=== PATIENT | female | born 1985 | race Caucasian/White ===

== ENCOUNTER → 2016-09-02 | Outpatient (REF) | payer OTHER ==
[2016-09-03 09:16] LABS: CARCINOEMBRYONIC ANTIGEN < 0.5 NG/ML (<2.5)
== END ==
LOC: M LABDRAW1 16:41
PROVIDERS: ATTEND Surgery
DX: D37.6 Neoplasm of uncertain behavior of liver, gallbladder and bile ducts (principal)

== ENCOUNTER → 2016-10-21 | Outpatient (CLI) | payer OTHER ==
--- NOTE | 2016-10-21 12:16 | REP ---
MRI abdomen without and with IV gadolinium: History: Multiple hepatic lesions. Comparison MRI study June 17, 2016. Comparison sonography is from June 07, [address] study is from June 18, 2016. Gadolinium enhancement dose: 20 mL of intravenous ProHance is administered. MRI technique: Axial and coronal imaging planes were utilized. T1 and T2-weighted sequences include true FISP, spin-echo, fast spin echo, in and out of phase, and dynamically and sequentially acquired T1 2-D gradient echo fat sat images postcontrast. MRI findings: There are multiple hypervascular liver lesions noted scattered in the right and left lobes of the liver. There are 11 identifiable nodules ranging in size from less than a centimeter to 6.2 cm in greatest diameter. These have become more numerous than on the prior study when no more than 5 or 6 were identifiable. They show subtle T2 hyperintensity, no evidence of intralesional fat on in and out of phase images, and hypervascular enhancement with washout kinetics. No splenic, pancreatic, renal, or adrenal lesion is seen. Gallbladder is unremarkable. No pleural effusion or ascites is seen. No biliary ductal dilation or pancreatic ductal dilation is observed. Impression: Progression in size and number of multiple hepatic lesions. Malignancy must be suspected. Ultrasound-guided needle biopsy should be considered. Signed by Clifford Henry MD 10/21/2016 06:25 P
== END ==
LOC: M RAD 09:09
PROVIDERS: ATTEND Surgery
DX: D37.6 Neoplasm of uncertain behavior of liver, gallbladder and bile ducts (principal)

== ENCOUNTER → 2016-10-25 | Outpatient (CLI) | payer OTHER ==
[2016-10-25 12:21] LABS: INR 0.86
== END ==
LOC: M LAB 11:14
PROVIDERS: ATTEND Surgery
DX: D37.6 Neoplasm of uncertain behavior of liver, gallbladder and bile ducts (principal)

== ENCOUNTER → 2016-11-01 | Outpatient (CLI) | payer OTHER ==
[~2016-11-01] MED LIST: ACETAMINOPHEN 325 MG TAB As Ordered ONE; LIDOCAINE 1% MDV 20ML VIAL As Ordered ONE
--- NOTE | 2016-11-01 17:37 | REP ---
ULTRASOUND GUIDED LIVER BIOPSY: The procedure was performed under the direct supervision of Dr. Strong. The patient has a history of multiple hepatic lesions seen on a previous MRI dated 10/21/2016. The risks and benefits of the procedure were explained to the patient and informed consent was obtained. A lesion in the right lobe of the liver was localized using ultrasound guidance. The skin was prepped and draped in a sterile fashion. 1% Lidocaine was used as a local anesthetic. Using ultrasound guidance a 19/20-gauge coaxial needle biopsy system was inserted and advanced into the mass. 4 core biopsy samples were obtained and sent to the lab. The patient tolerated the procedure well and there were no immediate complications. After the appropriate amount of monitored convalescence the patient was discharged from the department. Reviewed by THAI Vázquez 11/01/2016 05:44 PEdited and Signed by Suraj Strong MD 11/04/2016 05:37 P
== END ==
LOC: M RADPRO 08:13
PROVIDERS: ATTEND Surgery
DX: D13.4 Benign neoplasm of liver (principal); K74.60 Unspecified cirrhosis of liver; K76.0 Fatty (change of) liver, not elsewhere classified; E07.9 Disorder of thyroid, unspecified; Z79.899 Other long term (current) drug therapy

== ENCOUNTER → 2017-04-22 | Outpatient (REF) | payer OTHER ==
[2017-04-22 13:47] LABS: ALBUMIN 3.6 GM/DL (3.2-5.2); ALBUMIN/GLOBULIN RATIO 1.06 (1.00-1.93); BILIRUBIN,DIRECT 0.1 MG/DL (0.0-0.2); BILIRUBIN,TOTAL 0.5 MG/DL (0.2-1.0); FREE T4 0.62 NG/DL (0.76-1.46)
== END ==
LOC: M LABDRAW1 10:20
PROVIDERS: ATTEND Internal Medicine Endocrinology, Diabetes & Metabolism
DX: E78.2 Mixed hyperlipidemia (principal); E06.3 Autoimmune thyroiditis

== ENCOUNTER → 2018-02-13 | Outpatient (REF) | payer OTHER ==
[2018-02-13 19:29] LABS: FREE T3 3.3 PG/ML (2.2-4.0)
== END ==
LOC: M LAB REF 16:59
DX: E03.9 Hypothyroidism, unspecified (principal)

== ENCOUNTER → 2018-02-16 | Outpatient (REF) | payer OTHER ==
[2018-02-18 14:15] LABS: HPV HYBRID CAPTURE II Negative (Negative)
== END ==
LOC: M SFHCWAGY 12:11
DX: Z01.419 Encounter for gynecological examination (general) (routine) without abnormal findings (principal)

== ENCOUNTER → 2018-11-17 | Outpatient (REF) | payer OTHER ==
[2018-11-17 12:48] LABS: INR 0.88
== END ==
LOC: M LAB REF 12:32
PROVIDERS: ATTEND Internal Medicine
DX: K75.81 Nonalcoholic steatohepatitis (NASH) (principal)

== ENCOUNTER → 2019-08-27 | Outpatient (CLI) | payer OTHER | LOC: M LAB 07:50 | DX: E28.2 Polycystic ovarian syndrome (principal) ==

== ENCOUNTER → 2019-09-08 | Outpatient (CLI) | payer OTHER ==
--- NOTE | 2019-09-08 17:14 | REP ---
CHEST, TWO VIEWS: There is no evidence of acute infiltrate. No pleural effusion is seen. The heart is normal in size. The mediastinal silhouette is unremarkable. The visualized osseous structures are intact. IMPRESSION: No acute pulmonary disease. Electronically Signed by Suraj Strong MD 09/09/2019 02:04 P
== END ==
LOC: M WUC 16:22
PROVIDERS: ATTEND Physician Assistant
DX: J20.9 Acute bronchitis, unspecified (principal)

== ENCOUNTER → 2019-09-08 | Outpatient (REF) | payer OTHER ==
[2019-09-08 16:49] LABS: BLOOD UREA NITROGEN 8 MG/DL (7-18); CALCIUM LEVEL 9.3 MG/DL (8.5-10.1); CARBON DIOXIDE LEVEL 27 MEQ/L (21-32); CHLORIDE LEVEL 106 MEQ/L (98-107); CREATININE FOR GFR 0.56 MG/DL (0.55-1.30); GLOMERULAR FILTRATION RATE > 60.0 (>60); GLUCOSE, FASTING 98 MG/DL (70-100); POTASSIUM SERUM 3.8 MEQ/L (3.5-5.1); SODIUM LEVEL 138 MEQ/L (136-145)
== END ==
LOC: M LABDRAW1 15:05
PROVIDERS: ATTEND Internal Medicine
DX: E28.2 Polycystic ovarian syndrome (principal)

== ENCOUNTER → 2020-10-13 | Outpatient (CLI) | payer OTHER ==
[2020-10-13 11:23] LABS: HEMOGLOBIN A1c 5.6 %
[2020-10-13 11:35] LABS: FREE T4 0.99 NG/DL (0.76-1.46); THYROID STIMULATING HORMONE 0.051 uIU/ML (0.358-3.740)
== END ==
LOC: M WUC 09:51
DX: E28.2 Polycystic ovarian syndrome (principal); E03.9 Hypothyroidism, unspecified

== ENCOUNTER → 2021-04-11 | Outpatient (REF) | payer OTHER | LOC: M SFHCWAGY 17:54 | PROVIDERS: ATTEND Nurse Practitioner Women's Health | DX: Z12.4 Encounter for screening for malignant neoplasm of cervix (principal) ==

== ENCOUNTER → 2021-06-13 | Outpatient (REF) | payer OTHER | LOC: M WUC 19:03 | PROVIDERS: ATTEND Physician Assistant | DX: R30.0 Dysuria (principal) ==

== ENCOUNTER → 2021-07-17 | Outpatient (REF) | payer OTHER | LOC: M LAB REF 11:36 | PROVIDERS: ATTEND Internal Medicine | DX: E03.9 Hypothyroidism, unspecified (principal); E28.2 Polycystic ovarian syndrome ==

== ENCOUNTER → 2021-07-27 | Outpatient (CLI) | payer OTHER | LOC: M PLALAB 10:56 | PROVIDERS: ATTEND Advanced Practice Midwife | DX: N64.52 Nipple discharge (principal) ==

== ENCOUNTER → 2021-08-02 | Outpatient (CLI) | payer OTHER | LOC: M WHC 10:50 | PROVIDERS: ATTEND Advanced Practice Midwife | DX: N60.01 Solitary cyst of right breast (principal); N64.52 Nipple discharge ==

== ENCOUNTER → 2021-08-20 | Outpatient (CLI) | payer OTHER | LOC: M WHC 10:18 | PROVIDERS: ATTEND Advanced Practice Midwife | DX: R92.8 Other abnormal and inconclusive findings on diagnostic imaging of breast (principal); N60.01 Solitary cyst of right breast; N64.52 Nipple discharge | CPT/HCPCS: 76642; 77066; G0279 ==

== ENCOUNTER → 2021-10-23 | Outpatient (CLI) | payer OTHER ==
[~2021-10-23] MED LIST changes: -ACETAMINOPHEN 325 MG TAB As Ordered ONE; -LIDOCAINE 1% MDV 20ML VIAL As Ordered ONE; +PROHANCE 279.3MG/ML 15ML VIAL As Ordered ONE; +PROHANCE 279.3MG/ML 5ML VIAL As Ordered ONE
== END ==
LOC: M RAD 12:23
PROVIDERS: ATTEND Advanced Practice Midwife
DX: R92.8 Other abnormal and inconclusive findings on diagnostic imaging of breast (principal); N60.01 Solitary cyst of right breast; N64.52 Nipple discharge; N60.02 Solitary cyst of left breast
CPT/HCPCS: A9576; C8908

== ENCOUNTER → 2022-04-11 | Outpatient (CLI) | payer OTHER ==
[2022-04-11 18:55] LABS: THYROID STIMULATING HORMONE 0.728 uIU/ML (0.358-3.740)
== END ==
LOC: M PLALAB 15:04
PROVIDERS: ATTEND Nurse Practitioner
DX: E03.9 Hypothyroidism, unspecified (principal)

== ENCOUNTER → 2023-11-07 | Outpatient (REF) | payer OTHER ==
[2023-11-07 18:06] LABS: ALBUMIN 4.3 G/DL (3.2-5.2); ALKALINE PHOSPHATASE 73 U/L (46-116); ALT/SGPT 26 U/L (7.0-40); AST/SGOT 15 U/L (<34); BILIRUBIN,TOTAL 0.5 MG/DL (0.3-1.2); BLOOD UREA NITROGEN 9 MG/DL (9-23); CALCIUM LEVEL 9.7 MG/DL (8.5-10.1); CARBON DIOXIDE LEVEL 25 MMOL/L (20-31); CHLORIDE LEVEL 102 MMOL/L (98-107); GLOMERULAR FILTRATION RATE > 60.0 (>60); GLUCOSE, FASTING 79 MG/DL (60-100); POTASSIUM SERUM 4.6 MMOL/L (3.5-5.1); SODIUM LEVEL 138 MMOL/L (136-145); TOTAL PROTEIN 7.3 G/DL (5.7-8.2)
== END ==
LOC: M PLALAB 16:49
PROVIDERS: ATTEND Advanced Practice Midwife
DX: E28.2 Polycystic ovarian syndrome (principal)

== ENCOUNTER → 2024-10-14 | Outpatient (CLI) | payer OTHER | LOC: M WHC 14:56 | PROVIDERS: ATTEND Advanced Practice Midwife | DX: Z12.31 Encounter for screening mammogram for malignant neoplasm of breast (principal); N63.25 Unspecified lump in the left breast, overlapping quadrants; R92.323 Mammographic fibroglandular density, bilateral breasts ==

== ENCOUNTER → 2024-10-26 | Outpatient (CLI) | payer OTHER | LOC: M WHC 07:58 | PROVIDERS: ATTEND Advanced Practice Midwife | DX: Z12.31 Encounter for screening mammogram for malignant neoplasm of breast (principal) ==